=== PATIENT | male | born 1965 | race Caucasian/White ===

== ENCOUNTER → 2016-06-23 | Outpatient (CLI) | payer BC | END | disposition home or self-care (01) | LOC: RADMRIMAIN 19:59 | PROVIDERS: ATTEND Family Medicine | DX: Z53.9 Procedure and treatment not carried out, unspecified reason (principal) ==

== ENCOUNTER 2019-10-06 19:27 | Emergency (ER) | payer BC ==
--- NOTE | 2019-10-06 20:13 | ED ---
SOB HPI - General Chief Complaint: Shortness of Breath Stated Complaint: Syncope,Fall Time Seen by Provider: 10/06/19 19:43 Source: patient, family Mode of arrival: ambulatory Limitations: no limitations - History of Present Illness Initial Comments: 54-year-old male patient presents to the emergency department today for evaluation of chest pressure and shortness of breath. Patient has been having an intermittent cough for the last couple of months. Cough is nonproductive. He does work in construction and inhales dust so he thinks it may be related to ALLERGIES. 2 days ago patient was laughing really hard and started to cough. Had a syncopal episode where he was out for 1-2 seconds. Afterwards his checked his vital signs which were reportedly normal. Since the incident patient has been feeling mildly short of breath especially with activity and bending forward. Patient took a walk this afternoon with his afterwards that she checked his oxygen saturation was down to 89%. States that he had increased chest pressure and shortness of breath after the walk. Patient does have history of hypertension and does take blood pressure medication. He has no cardiac history. Denies smoking. Patient denies any recent rash, fever, chills, cough, abdominal pain, nausea, vomiting, diarrhea, constipation, back pain, numbness, tingling, dizziness, weakness, hematuria, dysuria, urinary urgency, urinary frequency, headache, visual changes, or any other complaints. - Related Data Allergies Allergy/AdvReac Type Severity Reaction Status Date / Time Penicillins Allergy Rash/Hives Verified 10/06/19 19:41 Review of Systems ROS Statement: Those systems with pertinent positive or pertinent negative responses have been documented in the HPI. ROS Other: All systems not noted in ROS Statement are negative. Past Medical History Past Medical History: Eye Disorder, Hypertension, Thyroid Disorder Additional Past Medical History / Comment(s): glaucoma, low testosterone, hypothyroid History of Any Multi-Drug Resistant Organisms: None Reported Past Surgical History: Orthopedic Surgery Past Psychological History: Anxiety Smoking Status: Never smoker Past Alcohol Use History: Occasional Past Drug Use History: None Reported General Exam Limitations: no limitations General appearance: alert, in no apparent distress, other (This is a well-de veloped, well-nourished adult male patient in no acute distress. Vital signs upon presentation are temperature 98.3F, pulse 73, respirations 20, blood pressure 145/85, pulse ox 96% on room air.) Eye exam: Present: normal appearance, PERRL, EOMI. Absent: scleral icterus, c onjunctival injection, periorbital swelling ENT exam: Present: normal exam, normal oropharynx, mucous membranes moist Respiratory exam: Present: normal lung sounds bilaterally. Absent: respiratory distress, wheezes, rales, rhonchi, stridor Cardiovascular Exam: Present: regular rate, normal rhythm, normal heart sounds. Absent: systolic murmur, diastolic murmur, rubs, gallop, clicks GI/Abdominal exam: Present: soft, normal bowel sounds. Absent: distended, tenderness, guarding, rebound, rigid Neurological exam: Present: alert, oriented X3, CN II-XII intact Psychiatric exam: Present: normal affect, normal mood Skin exam: Present: warm, dry, intact, normal color. Absent: rash Course Vital Signs 10/06/19 10/06/19 19:34 22:08 Temperature 98.3 F 98.1 F Pulse Rate 73 67 Respiratory 20 19 Rate Blood Pressure 145/85 141/72 O2 Sat by Pulse 96 96 Oximetry Medical Decision Making - Medical Decision Making 54-year-old male patient presents to the emergency department today for evaluation of shortness of breath, chest tightness, and reporting a syncopal episode last evening. Physical examination was unremarkable. Lungs are clear to auscultation with good air movement. Patient was in no respiratory distress. Labs reviewed and were unremarkable. EKG showed normal sinus rhythm. Chest x- ray showed no acute cardiopulmonary process. Upon reevaluation patient is resting comfortably in bed. Did discuss findings and results with him. He does feel comfortable being discharged home at this time to follow-up with his primary care physician for further evaluation. He is instructed to follow-up in one to 2 days. Return parameters were discussed in detail. He verbalizes understanding and agrees with this plan. - Lab Data Result diagrams: 10/06/19 20:26 10/06/19 20: Lab Results 10/06/19 10/06/19 10/06/19 Range/Units 20:26 20:26 20: WBC 8.9 (3.8-10.6) k/uL RBC 5.25 (4.30-5.90) m/uL Hgb 17.4 (13.0-17.5) gm/dL Hct 50.3 (39.0-53.0) % MCV 95.8 (80.0-100.0) fL MCH 33.0 (25.0-35.0) pg MCHC 34.5 (31.0-37.0) g/dL RDW 13.3 (11.5-15.5) % Plt Count 209 (150-450) k/uL Neutrophils % 64 % Lymphocytes % 24 % Monocytes % 8 % Eosinophils % 2 % Basophils % 0 % Neutrophils # 5.7 (1.3-7.7) k/uL Lymphocytes # 2.2 (1.0-4.8) k/uL Monocytes # 0.7 (0-1.0) k/uL Eosinophils # 0.2 (0-0.7) k/uL Basophils # 0.0 (0-0.2) k/uL PT 9.6 (9.0-12.0) sec INR 0.9 (<1.2) APTT 22.1 (22.0-30.0) sec D-Dimer 0.39 (<0.60) mg/L FEU Sodium 136 L (137-145) mmol/L Potassium 3.4 L (3.5-5.1) mmol/L Chloride 102 (98-107) mmol/L Carbon Dioxide 26 (22-30) mmol/L Anion Gap 8 mmol/L BUN 16 (9-20) mg/dL Creatinine 0.92 (0.66-1.25) mg/dL Est GFR (CKD-EPI)AfAm >90 (>60 ml/min/1.73 sqM) Est GFR (CKD-EPI)NonAf >90 (>60 ml/min/1.73 sqM) Glucose 112 H (74-99) mg/dL Plasma Lactic Acid Dio (0.7-2.0) mmol/L Calcium 9.2 (8.4-10.2) mg/dL Magnesium 2.0 (1.6-2.3) mg/dL Total Bilirubin 0.7 (0.2-1.3) mg/dL AST 40 (17-59) U/L ALT 52 H (4-49) U/L Alkaline Phosphatase 68 (38-126) U/L Troponin I (0.000-0.034) ng/mL NT-Pro-B Natriuret Pep pg/mL Total Protein 6.7 (6.3-8.2) g/dL Albumin 4.3 (3.5-5.0) g/dL 10/06/19 10/06/19 10/06/19 Range/Units 20:26 20:26 20:26 WBC (3.8-10.6) k/uL RBC (4.30-5.90) m/uL Hgb (13.0-17.5) gm/dL Hct (39.0-53.0) % MCV (80.0-100.0) fL MCH (25.0-35.0) pg MCHC (31.0-37.0) g/dL RDW (11.5-15.5) % Plt Count (150-450) k/uL Neutrophils % % Lymphocytes % % Monocytes % % Eosinophils % % Basophils % % Neutrophils # (1.3-7.7) k/uL Lymphocytes # (1.0-4.8) k/uL Monocytes # (0-1.0) k/uL Eosinophils # (0-0.7) k/uL Basophils # (0-0.2) k/uL PT (9.0-12.0) sec INR (<1.2) APTT (22.0-30.0) sec D-Dimer (<0.60) mg/L FEU Sodium (137-145) mmol/L Potassium (3.5-5.1) mmol/L Chloride (98-107) mmol/L Carbon Dioxide (22-30) mmol/L Anion Gap mmol/L BUN (9-20) mg/dL Creatinine (0.66-1.25) mg/dL Est GFR (CKD-EPI)AfAm (>60 ml/min/1.73 sqM) Est GFR (CKD-EPI)NonAf (>60 ml/min/1.73 sqM) Glucose (74-99) mg/dL Plasma Lactic Acid Dio 1.2 (0.7-2.0) mmol/L Calcium (8.4-10.2) mg/dL Magnesium (1.6-2.3) mg/dL Total Bilirubin (0.2-1.3) mg/dL AST (17-59) U/L ALT (4-49) U/L Alkaline Phosphatase (38-126) U/L Troponin I <0.012 (0.000-0.034) ng/mL NT-Pro-B Natriuret Pep 53 pg/mL Total Protein (6.3-8.2) g/dL Albumin (3.5-5.0) g/dL - EKG Data -: EKG Interpreted by Me EKG Comments: EKG obtained in 1950 shows normal sinus rhythm with a ventricular rate of 70, LA interval 186, QRS duration 122, QT 448, QTC 483. No evidence of ST elevation or depression - Radiology Data Radiology results: report reviewed, image reviewed Two-view x-ray of the chest is obtained. Report was reviewed in its entirety. Impression by Dr. Bustamante shows normal chest. Disposition Clinical Impression: Syncope, Shortness of breath, Chest pain Disposition: HOME SELF-CARE Condition: Good Instructions (If sedation given, give patient instructions): Chest Pain (ED), Syncope (ED), Shortness of Breath (ED) Additional Instructions: Follow-up with your primary care physician for recheck in 1-2 days. Return to the emergency department immediately for any new, worsening, or concerning symptoms. Is patient prescribed a controlled substance at d/c from ED?: No Referrals: Adriana Qiu MD [Primary Care Provider] - 1-2 days Time of Disposition: 21:44
--- NOTE | 2019-10-06 20:37 | XR ---
EXAMINATION TYPE: XR chest 2V DATE OF EXAM: 10/06/2019 COMPARISON: NONE HISTORY: Cough TECHNIQUE: 2 views FINDINGS: Heart and mediastinum are normal. Lungs are clear. Diaphragm is normal. Bony thorax appears normal. There are chest leads. IMPRESSION: Normal chest.
[2019-10-06 20:46] LABS: Basophils % (A) 0 %; Eosinophils # (A) 0.2 k/uL (0-0.7); Eosinophils % (A) 2 %; HCT 50.3 % (39.0-53.0); HGB 17.4 gm/dL (13.0-17.5); Lymphocytes # (A) 2.2 k/uL (1.0-4.8); Lymphocytes % (A) 24 %; MCHC 34.5 g/dL (31.0-37.0); MCV 95.8 fL (80.0-100.0); Mean Platelet Volume 7.5; Monocytes # (A) 0.7 k/uL (0-1.0); Monocytes % (A) 8 %; Neutrophils # (A) 5.7 k/uL (1.3-7.7); Neutrophils % (A) 64 %; Platelet Count 209 k/uL (150-450); RBC 5.25 m/uL (4.30-5.90); RDW 13.3 % (11.5-15.5); WBC 8.9 k/uL (3.8-10.6)
[2019-10-06 20:53] LABS: ALT 52 U/L (4-49); AST 40 U/L (17-59); African American GFR (CKD) >90 (>60 ml/min/1.73 sqM); Albumin 4.3 g/dL (3.5-5.0); Alkaline Phosphatase 68 U/L (38-126); Anion Gap 8 mmol/L; Blood Urea Nitrogen 16 mg/dL (9-20); Calcium 9.2 mg/dL (8.4-10.2); Carbon Dioxide 26 mmol/L (22-30); Chloride 102 mmol/L (98-107); Glucose 112 mg/dL (74-99); Non-African American GFR(CKD) >90 (>60 ml/min/1.73 sqM); Potassium 3.4 mmol/L (3.5-5.1); Sodium 136 mmol/L (137-145); Total Bilirubin 0.7 mg/dL (0.2-1.3); Total Protein 6.7 g/dL (6.3-8.2)
[2019-10-06] MEDS ORDERED: POTASSIUM CHLORIDE ER 20 MEQ TAB.ER PO STA (21:12)
[2019-10-06 21:13] LABS: D-Dimer 0.39 mg/L FEU (<0.60); INR 0.9 (<1.2); Partial Thromboplastin Time 22.1 sec (22.0-30.0); Prothrombin Time 9.6 sec (9.0-12.0)
[2019-10-06 22:10] VITALS: BP 141/72; PULSE 67; RESP 19; TEMP 98.1
== END 2019-10-06 22:10 | disposition home or self-care (01) ==
LOC: EC 19:27
DX: R06.02 Shortness of breath (principal); R07.89 Other chest pain; R55 Syncope and collapse; Z20.828 Contact with and (suspected) exposure to other viral communicable diseases; Z88.0 Allergy status to penicillin
CPT/HCPCS: 36415; 93005; 85379; 83880; 80053; 83605; 83735; 84484; 85025; 85610; 85730; 71046; 99285; U0003

== ENCOUNTER 2022-02-11 06:52 | Day surgery (SDC) | payer BC ==
[2022-02-09 12:24] VITALS: BMI 37.2
[~2022-02-11 06:52] MED LIST: LACTATED RINGERS 1,000 ML IV SCH
[2022-02-11 07:31] VITALS: RESP 16; TEMP 98
[2022-02-11] MEDS ORDERED: PROPOFOL 10 MG/ML 20 ML VIAL IV ONE (08:21)
--- NOTE | 2022-02-11 08:35 | P.PCN ---
Date of Procedure: 02/11/22 Procedure(s) Performed: BRIEF HISTORY: Patient is a 56-year-old pleasant white male scheduled for an elective colonoscopy as a part of screening for colon cancer. PROCEDURE PERFORMED: Colonoscopy. PREOPERATIVE DIAGNOSIS: Screening for colon cancer. IV sedation per Anesthesia. PROCEDURE: After informed consent was obtained, the patient, was brought into the endoscopy unit. IV sedation was administered by Anesthesia under continuous monitoring. Digital rectal examination was normal. Initially the Olympus CF-160 flexible video colonoscope was then inserted in the rectum, gradually advanced into the cecum without any difficulty. Careful examination was performed as the scope was gradually being withdrawn. Ileocecal valve and the appendiceal orifice were visualized and appeared normal. Prep was excellent. Mucosa of the cecum, ascending colon, transverse colon, descending colon, sigmoid colon, and rectum appeared normal. Retroflexion was performed in the rectum and no lesions were seen. The patient tolerated the procedure well. IMPRESSION: Normal-appearing colon from rectum to cecum with no evidence of colorectal neoplasia. RECOMMENDATIONS: Findings of this examination were discussed with the patient as well as his family.. He was advised to have a repeat screening colonoscopy in 10 years.
[2022-02-11] MEDS ORDERED: IV FLUID CONTINUATION 1,000 ML IV ONE (08:39)
[2022-02-11 09:00] VITALS: BP 117/71; PULSE 79
== END 2022-02-11 09:46 | disposition home or self-care (01) ==
LOC: ORWHC2ENDO 06:52
PROVIDERS: ATTEND Internal Medicine Gastroenterology
DX: Z12.11 Encounter for screening for malignant neoplasm of colon (principal); Z88.0 Allergy status to penicillin
CPT/HCPCS: 45378; J2704

== ENCOUNTER 2022-03-29 17:09 | Emergency (ER) | payer BC ==
[2022-03-29 17:20] VITALS: RESP 18; TEMP 98.3
--- NOTE | 2022-03-29 18:57 | ED ---
General Adult HPI - General Chief complaint: Syncope Stated complaint: Nausea,Vomiting,Syncope Time Seen by Provider: 03/29/22 17:19 Source: patient, EMS, RN notes reviewed, old records reviewed Mode of arrival: EMS Limitations: no limitations - History of Present Illness Initial comments: This is a 57-year-old male who presents emergency department stating that at about 1:00 he started getting extremely dizzy like the room was spinning. Patient states he felt like he was given a fall over. Patient states BECAME very nauseated and diaphoretic. Patient denies any chest pain or palpitations. Patient states he did not feel like he was given a passout he felt very dizzy and felt as though he might fall over feeding grab onto something. Patient states he's had little episodes of vertigo in his past but nothing that lasted this long. Patient states he still feels somewhat dizzy. Patient states he kind of focus is on one item it subsides to some degree. Patient denies any headache. Patient denies any numbness or weakness that is focal. Patient denies any fever or chills. Patient states he has had a cough and some congestion. Patient denies any abdominal pain patient has nausea vomiting diarrhea. Patient denies any swelling to legs or calf tenderness. - Related Data Home Medications Medication Instructions Recorded Confirmed Atenolol/Chlorthalidone 1 tab PO DAILY 02/09/22 03/29/22 [Atenolol/Chlorthalidone 50-25] Ibuprofen [Motrin] 600 mg PO Q8HR PRN 02/09/22 03/29/22 Levothyroxine Sodium [Synthroid] 50 mcg PO DAILY 02/09/22 03/29/22 Testosterone [Androgel 1.62% Gel 2 packet TOPICAL HS 02/09/22 03/29/22 Packet] clonazePAM [KlonoPIN] 0.5 mg PO DAILY PRN 02/09/22 03/29/22 metFORMIN HCL [Glucophage] 850 mg PO HS 02/09/22 03/29/22 Azithromycin [Zithromax Z Pack] See Taper PO DIRECTED 03/29/22 03/29/22 Benzonatate [Tessalon Perle] 200 mg PO TID PRN 03/29/22 03/29/22 Diclofenac Sodium Gel [Voltaren 2 gm TOPICAL QID PRN 03/29/22 03/29/22 Gel] Ketorolac 0.5% Ophth Soln [Acular 1 drop RIGHT EYE QID 03/29/22 03/29/22 0.5%] Ofloxacin 0.3% Ophth Soln [Ocuflox 1 drop RIGHT EYE QID 03/29/22 03/29/22 Ophth Soln] Prednisolone Acetate/Pf 1 drop BOTH EYES 5XD 03/29/22 03/29/22 [Prednisolone Acet 1% Eye Drop] Previous Rx's Medication Instructions Recorded Meclizine [Antivert] 25 mg PO TID #20 tab 03/29/22 Metoclopramide HCl [Reglan] 10 mg PO Q6H PRN #10 tab 03/29/22 Allergies Allergy/AdvReac Type Severity Reaction Status Date / Time Penicillins Allergy Rash/Hives Verified 03/29/22 18:14 Review of Systems ROS Statement: Those systems with pertinent positive or pertinent negative responses have been documented in the HPI. ROS Other: All systems not noted in ROS Statement are negative. Past Medical History Past Medical History: Eye Disorder, Hypertension, Sleep Apnea/CPAP/BIPAP, Thyroid Disorder Additional Past Medical History / Comment(s): glaucoma, low testosterone, hypothyroid, C PAP MACHINE History of Any Multi-Drug Resistant Organisms: None Reported Past Surgical History: Orthopedic Surgery Additional Past Surgical History / Comment(s): RIGHT KNEE SURGERY,RIGHT ACHILLES TENDON REPAIR SURGERY, LEFT SHOULDER SURGERY Past Anesthesia/Blood Transfusion Reactions: No Reported Reaction Past Psychological History: Anxiety Smoking Status: Never smoker Past Alcohol Use History: Occasional Past Drug Use History: None Reported - Past Family History Mother Family Medical History: No Reported History General Exam - General Exam Comments Initial Comments: GENERAL: Patient is well-developed and well-nourished. Patient is nontoxic and well- hydrated and is in mild distress. ENT: Neck is soft and supple. No significant lymphadenopathy is noted. Oropharynx is clear. Moist mucous membranes. Neck has full range of motion without eliciting any pain. EYES: The sclera were anicteric and conjunctiva were pink and moist. Extraocular movements were intact and pupils were equal round and reactive to light. Patient has horizontal nystagmus the left. PULMONARY: Unlabored respirations. Good breath sounds bilaterally. No audible rales rhonchi or wheezing was noted. CARDIOVASCULAR: There is a regular rate and rhythm without any murmurs gallops or rubs. ABDOMEN: Soft and nontender with normal bowel sounds. SKIN: Skin is clear with no lesions or rashes and otherwise unremarkable. NEUROLOGIC: Patient is alert and oriented x3. Cranial nerves II through XII are grossly intact. Motor and sensory are also intact. Normal speech, volume and content. Symmetrical smile. Cerebellar testing finger to nose bilaterally was normal MUSCULOSKELETAL: Normal extremities with adequate strength and full range of motion. No lower extremity swelling or edema. No calf tenderness. LYMPHATICS: No significant lymphadenopathy is noted PSYCHIATRIC: Normal psychiatric evaluation. Limitations: no limitations Course Vital Signs 03/29/22 03/29/22 03/29/22 17:10 18:07 18:30 Temperature 98.3 F Pulse Rate 71 70 Pulse Rate [ 72 Left Left Lateral Pulse Oximetery] Pulse Rate [ 68 Left Sitting Pulse Oximetery ] Pulse Rate [ 70 Left Supine Pulse Oximetery ] Respiratory 18 16 Rate Blood Pressure 140/84 133/75 Blood Pressure 146/88 [Left Arm Sitting] Blood Pressure 155/89 [Left Arm Standing] Blood Pressure 137/79 [Left Arm Supine] O2 Sat by Pulse 97 99 Oximetry 03/29/22 19:41 Temperature Pulse Rate 69 Pulse Rate [ Left Left Lateral Pulse Oximetery] Pulse Rate [ Left Sitting Pulse Oximetery ] Pulse Rate [ Left Supine Pulse Oximetery ] Respiratory 18 Rate Blood Pressure 122/71 Blood Pressure [Left Arm Sitting] Blood Pressure [Left Arm Standing] Blood Pressure [Left Arm Supine] O2 Sat by Pulse 98 Oximetry Medical Decision Making - Medical Decision Making EKG was interpreted by myself. EKG shows sinus rhythm at 70 bpm TN interval 119 is 140 QT interval 4 73 mL 494. Patient's EKG shows no ST segment elevation or depression. Was pt. sent in by a medical professional or institution? @ -No Did you speak to anyone other than the patient for history? @ -Family and EMS Did you review nursing and triage notes? @ -I did review the nurse's notes and the nurse's notes stated that the patient was near syncopal patient disagrees when I ask him that. Patient states he felt like he was given a fall over but did not pass out Were old charts reviewed? @ -No Differential Diagnosis? @ -Differential Dizziness: Benign paroxysmal positional Vertigo, Menieres disease, otitis media, acoustic neuroma, vertebrobasilar insufficiency, cerebellar stroke, encephalitis, hypovolemic, arrhythmia, coronary artery syndrome, anemia, this is not meant to be an all-inclusive list EKG interpreted by me (3pts min.)? @ -As above X-rays interpreted by me (1pt min.)? @ -Yes and it showed no acute abnormality CT interpreted by me (1pt min.)? @ -Yes and no acute abnormality was noted U/S interpreted by me (1pt. min.)? @ -No What testing was considered but not performed? (CT, X-rays, U/S, labs)? Why? @ -No What meds were considered but not given? Why? @ -I considered a scopolamine patch by decided to use Antivert Did you discuss the management of the patient with other professionals? @ -No Did you reconcile home meds? @ -No Was smoking cessation discussed for >3mins.? @ -No Was critical care preformed (if so, how long)? @ -No Were there social determinants of health that impacted care today? How? (Homelessness, low income, unemployed, alcoholism, drug addiction, transportation, low edu. Level, literacy, decrease access to med. care, longterm, rehab)? @ -No Was there de-escalation of care discussed even if they declined? (Discuss DNR or withdrawal of care, Hospice)? @ -No What co-morbidities impacted this encounter? (DM, HTN, Smoking, COPD, CAD, Cancer, CVA, Hep., AIDS, mental health diagnosis, sleep apnea, morbid obesity)? @ -No Was patient admitted / discharged? @ -Discharged home. Patient has vertigo so the patient home with Antivert. Patient is to follow-up with ENT if symptoms worsen. Undiagnosed new problem with uncertain prognosis? @ -No Drug Therapy requiring intensive monitoring for toxicity (Heparin, Nitro, Insulin, Cardizem)? @ -No Were any procedures done? @ -No Diagnosis/symptom? @ -Vertigo Acute, or Chronic, or Acute on Chronic? @ -Acute Uncomplicated (without systemic symptoms) or Complicated (systemic symptoms)? @ -Uncomplicated Side effects of treatment? @ -No Exacerbation, Progression, or Severe Exacerbation] @ -No Poses a threat to life or bodily function? @ -No - Lab Data Result diagrams: 03/29/22 19:15 03/29/22 19:15 Lab Results 03/29/22 03/29/22 03/29/22 Range/Units 19:15 19:15 19:15 WBC 12.0 H (3.8-10.6) k/uL RBC 5.33 (4.30-5.90) m/uL Hgb 17.2 (13.0-17.5) gm/dL Hct 49.5 (39.0-53.0) % MCV 92.9 (80.0-100.0) fL MCH 32.2 (25.0-35.0) pg MCHC 34.7 (31.0-37.0) g/dL RDW 13.8 (11.5-15.5) % Plt Count 163 (150-450) k/uL MPV 8.1 Neutrophils % 82 % Lymphocytes % 8 % Monocytes % 7 % Eosinophils % 1 % Basophils % 0 % Neutrophils # 9.8 H (1.3-7.7) k/uL Lymphocytes # 0.9 L (1.0-4.8) k/uL Monocytes # 0.8 (0-1.0) k/uL Eosinophils # 0.1 (0-0.7) k/uL Basophils # 0.0 (0-0.2) k/uL PT 10.2 (9.0-12.0) sec INR 1.0 (<1.2) APTT 21.1 L (22.0-30.0) sec Sodium 137 (137-145) mmol/L Potassium 3.4 L (3.5-5.1) mmol/L Chloride 97 L (98-107) mmol/L Carbon Dioxide 28 (22-30) mmol/L Anion Gap 12 mmol/L BUN 17 (9-20) mg/dL Creatinine 0.82 (0.66-1.25) mg/dL Est GFR (CKD-EPI)AfAm >90 (>60 ml/min/1.73 sqM) Est GFR (CKD-EPI)NonAf >90 (>60 ml/min/1.73 sqM) Glucose 182 H (74-99) mg/dL Calcium 9.0 (8.4-10.2) mg/dL Magnesium 1.6 (1.6-2.3) mg/dL Total Bilirubin 0.6 (0.2-1.3) mg/dL AST 59 (17-59) U/L ALT 68 H (4-49) U/L Alkaline Phosphatase 86 (38-126) U/L Troponin I (0.000-0.034) ng/mL Total Protein 7.1 (6.3-8.2) g/dL Albumin 4.4 (3.5-5.0) g/dL 03/29/22 Range/Units 19:15 WBC (3.8-10.6) k/uL RBC (4.30-5.90) m/uL Hgb (13.0-17.5) gm/dL Hct (39.0-53.0) % MCV (80.0-100.0) fL MCH (25.0-35.0) pg MCHC (31.0-37.0) g/dL RDW (11.5-15.5) % Plt Count (150-450) k/uL MPV Neutrophils % % Lymphocytes % % Monocytes % % Eosinophils % % Basophils % % Neutrophils # (1.3-7.7) k/uL Lymphocytes # (1.0-4.8) k/uL Monocytes # (0-1.0) k/uL Eosinophils # (0-0.7) k/uL Basophils # (0-0.2) k/uL PT (9.0-12.0) sec INR (<1.2) APTT (22.0-30.0) sec Sodium (137-145) mmol/L Potassium (3.5-5.1) mmol/L Chloride (98-107) mmol/L Carbon Dioxide (22-30) mmol/L Anion Gap mmol/L BUN (9-20) mg/dL Creatinine (0.66-1.25) mg/dL Est GFR (CKD-EPI)AfAm (>60 ml/min/1.73 sqM) Est GFR (CKD-EPI)NonAf (>60 ml/min/1.73 sqM) Glucose (74-99) mg/dL Calcium (8.4-10.2) mg/dL Magnesium (1.6-2.3) mg/dL Total Bilirubin (0.2-1.3) mg/dL AST (17-59) U/L ALT (4-49) U/L Alkaline Phosphatase (38-126) U/L Troponin I <0.012 (0.000-0.034) ng/mL Total Protein (6.3-8.2) g/dL Albumin (3.5-5.0) g/dL Disposition Clinical Impression: Vertigo Disposition: HOME SELF-CARE Condition: Good Prescriptions: Meclizine [Antivert] 25 mg PO TID #20 tab Metoclopramide HCl [Reglan] 10 mg PO Q6H PRN #10 tab PRN Reason: Nausea And Vomiting Is patient prescribed a controlled substance at d/c from ED?: No Referrals: Adriana Qiu MD [Primary Care Provider] - 1-2 days Time of Disposition: 20:50
[2022-03-29] MEDS ORDERED: MECLIZINE 12.5 MG TAB PO STA (19:17)
[2022-03-29] MEDS ORDERED: ONDANSETRON 4 MG/2 ML VIAL IVP STA (19:17)
--- NOTE | 2022-03-29 19:23 | XR ---
EXAMINATION TYPE: XR chest 2V DATE OF EXAM: 03/29/2022 7:14 PM COMPARISON: Chest radiographs from; 08/21/2019 TECHNIQUE: XR chest 2V Frontal and lateral views of the chest. CLINICAL INDICATION:Male, 57 years old with history of Chest Pain; FINDINGS: Lungs/Pleura: There is no evidence of pleural effusion, focal consolidation, or pneumothorax. Pulmonary vascularity: Unremarkable. Heart/mediastinum: Cardiomediastinal silhouette is unremarkable. Musculoskeletal: No acute osseous pathology. IMPRESSION: No acute cardiopulmonary disease/process.
[2022-03-29 19:43] LABS: ALT 68 U/L (4-49); AST 59 U/L (17-59); African American GFR (CKD) >90 (>60 ml/min/1.73 sqM); Albumin 4.4 g/dL (3.5-5.0); Alkaline Phosphatase 86 U/L (38-126); Anion Gap 12 mmol/L; Blood Urea Nitrogen 17 mg/dL (9-20); Carbon Dioxide 28 mmol/L (22-30); Chloride 97 mmol/L (98-107); Glucose 182 mg/dL (74-99); Magnesium 1.6 mg/dL (1.6-2.3); Non-African American GFR(CKD) >90 (>60 ml/min/1.73 sqM); Potassium 3.4 mmol/L (3.5-5.1); Sodium 137 mmol/L (137-145); Total Bilirubin 0.6 mg/dL (0.2-1.3); Total Protein 7.1 g/dL (6.3-8.2)
[2022-03-29 19:44] LABS: Prothrombin Time 10.2 sec (9.0-12.0)
[2022-03-29 19:46] LABS: HCT 49.5 % (39.0-53.0); HGB 17.2 gm/dL (13.0-17.5); MCH 32.2 pg (25.0-35.0); MCHC 34.7 g/dL (31.0-37.0); MCV 92.9 fL (80.0-100.0); RBC 5.33 m/uL (4.30-5.90)
[2022-03-29 19:47] LABS: Basophils % (A) 0 %; Eosinophils # (A) 0.1 k/uL (0-0.7); Eosinophils % (A) 1 %; Lymphocytes # (A) 0.9 k/uL (1.0-4.8); Lymphocytes % (A) 8 %; Mean Platelet Volume 8.1; Monocytes # (A) 0.8 k/uL (0-1.0); Monocytes % (A) 7 %; Neutrophils # (A) 9.8 k/uL (1.3-7.7); Neutrophils % (A) 82 %; Platelet Count 163 k/uL (150-450); RDW 13.8 % (11.5-15.5)
[2022-03-29 19:57] LABS: Partial Thromboplastin Time 21.1 sec (22.0-30.0)
--- NOTE | 2022-03-29 20:06 | CT ---
EXAMINATION TYPE: CT brain wo con CT DLP: 1173.4 mGycm, Automated exposure control for dose reduction was used. DATE OF EXAM: 03/29/2022 7:10 PM COMPARISON: None. CLINICAL INDICATION:Male, 57 years old with history of near syncope, dizziness and nausea/ vomiting. TECHNIQUE: Brain: Axial CT images of the brain were obtained with coronal and sagittal reformats created and rev iewed. Contrast used: None. Oral contrast used: None. FINDINGS: Brain: Extra-axial spaces: No abnormal extra-axial fluid collections. Ventricular system: Within normal limits Cerebral parenchyma: No acute intraparenchymal hemorrhage or mass effect. The simon-white junction is well differentiated. Cerebellum: Unremarkable. Mass effect: No evidence of midline shift. Intracranial vasculature: unremarkable Soft tissues: Normal. Calvarium/osseous structures: No depressed skull fracture. Paranasal sinuses and mastoid air cells: Mild scattered paranasal sinus disease. Visualized orbits: Orbital contents are intact. IMPRESSION: No acute intracranial process.
[2022-03-29] MEDS ORDERED: METOCLOPRAMIDE 10 MG TAB PO STA (21:16)
[2022-03-29] MEDS ORDERED: MECLIZINE 25 MG TAB PO STA (21:16)
[2022-03-29 21:29] VITALS: BP 132/80; PULSE 72
== END 2022-03-29 21:29 | disposition home or self-care (01) ==
LOC: EC 17:09
DX: R42 Dizziness and giddiness (principal); I10 Essential (primary) hypertension; G47.30 Sleep apnea, unspecified; E03.9 Hypothyroidism, unspecified; F41.9 Anxiety disorder, unspecified; Z79.890 Hormone replacement therapy; Z79.899 Other long term (current) drug therapy; Z88.0 Allergy status to penicillin
CPT/HCPCS: 36415; 93005; 80053; 83735; 84484; 85025; 85610; 85730; 71046; 70450; 99285; 96374; J2405

== ENCOUNTER → 2022-06-27 | Outpatient (CLI) | payer BC ==
--- NOTE | 2022-06-27 11:20 | XR ---
EXAMINATION TYPE: XR knee complete RT DATE OF EXAM: 06/27/2022 CLINICAL HISTORY: Pain. Twisting injury 1 year ago. TECHNIQUE: Three views of the right knee are obtained. COMPARISON: None. FINDINGS: There is no acute fracture/dislocation evident in right knee. Moderate narrowing and spurr ing medial tibiofemoral compartment. Moderate narrowing with [id number] spurring patellofemoral and lateral tibiofemoral compartments. Overlying soft tissues are unremarkable. IMPRESSION: As above.
== END | disposition home or self-care (01) ==
LOC: RADXRMAIN 11:06
PROVIDERS: ATTEND Family Medicine
DX: M25.861 Other specified joint disorders, right knee (principal); M76.891 Other specified enthesopathies of right lower limb, excluding foot

== ENCOUNTER 2023-03-13 18:39 | Observation (INO) | payer BC ==
--- NOTE | 2023-03-13 19:26 | ED ---
Chest Pain HPI - General Chief Complaint: Chest Pain Stated Complaint: Chest pains Time Seen by Provider: 03/13/23 19:26 Source: patient Mode of arrival: ambulatory Limitations: no limitations - History of Present Illness Initial Comments: 58-year-old male with history of diabetes and hypertension presenting with chief complaint of chest pain. Patient has had intermittent pain to the left side of the chest. Feels like a burning sensation. He does have some radiation into the left shoulder. No shortness of breath or palpitations. No nausea, vomiting, abdominal pain. No lower extremity swelling. No fevers or chills. No numbness, tingling, weakness. - Related Data Home Medications Medication Instructions Recorded Confirmed Atenolol/Chlorthalidone 1 tab PO DAILY 02/09/22 03/13/23 [Atenolol/Chlorthalidone 50-25] Ibuprofen [Motrin] 600 mg PO TID PRN 02/09/22 03/13/23 Levothyroxine Sodium [Synthroid] 50 mcg PO DAILY 02/09/22 03/13/23 Testosterone [Androgel 1.62% Gel 2 packet TOPICAL DAILY 02/09/22 03/13/23 Packet] clonazePAM [KlonoPIN] 0.25 mg PO HS 02/09/22 03/13/23 Prednisolone Acetate/Pf 1 drop BOTH EYES HS 03/29/22 03/13/23 [Prednisolone Acet 1% Eye Drop] Semaglutide [Ozempic] 1 mg SQ SA 03/13/23 03/13/23 Allergies Allergy/AdvReac Type Severity Reaction Status Date / Time Penicillins Allergy Rash/Hives Verified 03/13/23 20:59 on belly Review of Systems ROS Statement: Those systems with pertinent positive or pertinent negative responses have been documented in the HPI. ROS Other: All systems not noted in ROS Statement are negative. EKG Findings - EKG Comments: EKG Findings:: Sinus rhythm ventricular rate 89. WV interval 196. QRS 141. QT 400. QTC 447. Past Medical History Past Medical History: Diabetes Mellitus, Eye Disorder, Hypertension, Sleep Apnea/CPAP/BIPAP, Thyroid Disorder Additional Past Medical History / Comment(s): glaucoma, low testosterone, hypothyroid, C PAP MACHINE History of Any Multi-Drug Resistant Organisms: None Reported Past Surgical History: Orthopedic Surgery Additional Past Surgical History / Comment(s): RIGHT KNEE SURGERY,RIGHT ACHILLES TENDON REPAIR SURGERY, LEFT SHOULDER SURGERY Past Anesthesia/Blood Transfusion Reactions: No Reported Reaction Past Psychological History: Anxiety Smoking Status: Never smoker Past Alcohol Use History: Occasional Past Drug Use History: None Reported - Past Family History Mother Family Medical History: No Reported History General Exam - General Exam Comments Initial Comments: Visual Physical Exam Vital signs reviewed General: Well-appearing, nontoxic, no acute distress. Head: Normocephalic, atraumatic Eyes: PERRLA, EOMI ENT: Airway patent Chest: Nonlabored breathing Skin: No visual rash, normal skin tone Neuro: Alert and oriented 3 Musculoskeletal: No gross abnormalities Limitations: no limitations General appearance: alert, in no apparent distress Head exam: Present: atraumatic, normocephalic, normal inspection Eye exam: Present: normal appearance, EOMI Neck exam: Present: normal inspection, full ROM Respiratory exam: Present: normal lung sounds bilaterally. Absent: respiratory distress, wheezes, rales, rhonchi, stridor Cardiovascular Exam: Present: regular rate, normal rhythm, normal heart sounds. Absent: systolic murmur, diastolic murmur, rubs, gallop, clicks Extremities exam: Absent: pedal edema Neurological exam: Present: alert, oriented X3 Psychiatric exam: Present: normal affect, normal mood Skin exam: Present: warm, dry, intact, normal color. Absent: rash Course Vital Signs 03/13/23 03/13/23 03/13/23 18:54 20:03 21:47 Temperature 97.9 F Pulse Rate 89 92 73 Respiratory 20 16 16 Rate Blood Pressure 161/81 147/83 110/71 O2 Sat by Pulse 98 98 95 Oximetry Chest Pain MDM - MDM Was pt. sent in by a medical professional or institution (, PA, HELP DESK ASSOCIATE, urgent care, hospital, or fci...) When possible be specific @ -No Did you speak to anyone other than the patient for history (EMS, parent, family, police, friend...)? What history was obtained from this source @ -No Did you review nursing and triage notes (agree or disagree)? Why? @ -I reviewed and agree with nursing and triage notes Were old charts reviewed (outside hosp., previous admission, EMS record, old EKG, old radiological studies, urgent care reports/EKG's, fci records)? Report findings @ -No old charts were reviewed Differential Diagnosis (chest pain, altered mental status, abdominal pain women, abdominal pain men, vaginal bleeding, weakness, fever, dyspnea, syncope, headache, dizziness, GI bleed, back pain, seizure, CVA, palpatations, mental health, musculoskeletal)? @ -[facility] Differential Chest Pain: Stable Angina, Unstable Angina, STEMI, NSTEMI Aortic Dissection, Pneumothorax, Musculoskeletal, Esophageal Spasm GERD, Cholecystitis, Pancreatitis, Zoster This is not meant to be an all-inclusive list. EKG interpreted by me (3pts min.). @ -As above X-rays interpreted by me (1pt min.). @ -Chest x-ray shows no acute cardiopulmonary process CT interpreted by me (1pt min.). @ -None done U/S interpreted by me (1pt. min.). @ -None done What testing was considered but not performed or refused? (CT, X-rays, U/S, labs)? Why? @ -None What meds were considered but not given or refused? Why? @ -None Did you discuss the management of the patient with other professionals (professionals i.e. , PA, HELP DESK ASSOCIATE, lab, RT, psych nurse, social media specialist, art instructor, teacher, inspectors and regulatory officers, parts manager)? Give summary @ -I spoke with Dr. Klein who accepted admission Was smoking cessation discussed for >3mins.? @ -No Was critical care preformed (if so, how long)? @ -No Were there social determinants of health that impacted care today? How? (Homelessness, low income, unemployed, alcoholism, drug addiction, transportation, low edu. Level, literacy, decrease access to med. care, nursing home, rehab)? @ -No Was there de-escalation of care discussed even if they declined (Discuss DNR or withdrawal of care, Hospice)? DNR status @ -No What co-morbidities impacted this encounter? (DM, HTN, Smoking, COPD, CAD, Cancer, CVA, ARF, Chemo, Hep., AIDS, mental health diagnosis, sleep apnea, morbid obesity)? @ -None Was patient admitted / discharged? Hospital course, mention meds given and route, prescriptions, significant lab abnormalities, going to OR and other pertinent info. @ -58-year-old male presenting with chief complaint of chest pain. History and physical examination are conducted. Potassium 3.1. Workup shows no acute [place]. Patient will be admitted for observation with evaluation by cardiology in the morning. Patient is agreeable to this plan. I discussed this case with my attending Dr. Olivo Undiagnosed new problem with uncertain prognosis? @ -No Drug Therapy requiring intensive monitoring for toxicity (Heparin, Nitro, Insulin, Cardizem)? @ -No Were any procedures done? @ -No Diagnosis/symptom? @ -Chest Pain Acute, or Chronic, or Acute on Chronic? @ -Acute Uncomplicated (without systemic symptoms) or Complicated (systemic symptoms)? @ -Complicated Side effects of treatment? @ -No Exacerbation, Progression, or Severe Exacerbation? @ -No Poses a threat to life or bodily function? How? (Chest pain, [place], [place], pneumonia, PE, COPD, DKA, ARF, appy, cholecystitis, CVA, Diverticulitis, Homicidal, Suicidal, threat to staff... and all critical care pts) @ -Yes Disposition Clinical Impression: Chest pain Disposition: ADMITTED IP TO THIS HOSP Condition: Fair Time of Disposition: 21:18
--- NOTE | 2023-03-13 19:34 | XR ---
EXAMINATION TYPE: XR chest 2V DATE OF EXAM: 03/13/2023 7:07 PM CLINICAL INDICATION:Male, 58 years old with history of Chest Pain; [facility] COMPARISON: 2 view chest 03/29/2022 TECHNIQUE: XR chest 2V. Frontal PA and lateral views of the chest. FINDINGS: Lines/Tubes: None. Heart/mediastinum: Cardiomediastinal silhouette is well defined and stable. Heart size is normal. M ediastinum appears normal. Pulmonary vascularity: Not increased, Lungs/Pleura: There is no evidence of pleural effusion, focal consolidation, or pneumothorax. Musculoskeletal: No acute osseous abnormality demonstrated in the limits of the exam. Other findings: None. IMPRESSION: No acute cardiopulmonary abnormality. No change.
[2023-03-13 19:54] LABS: Basophils % (A) 0 %; Eosinophils # (A) 0.2 k/uL (0-0.7); Eosinophils % (A) 2 %; HGB 18.2 gm/dL (13.0-17.5); Lymphocytes # (A) 2.3 k/uL (1.0-4.8); Lymphocytes % (A) 23 %; MCH 31.4 pg (25.0-35.0); MCHC 34.3 g/dL (31.0-37.0); MCV 91.6 fL (80.0-100.0); Mean Platelet Volume 7.8; Monocytes # (A) 0.6 k/uL (0-1.0); Monocytes % (A) 6 %; Neutrophils # (A) 6.7 k/uL (1.3-7.7); Neutrophils % (A) 67 %; Platelet Count 193 k/uL (150-450); RBC 5.79 m/uL (4.30-5.90); RDW 13.5 % (11.5-15.5)
[2023-03-13] MEDS ORDERED: ASPIRIN 81 MG PO STA (19:58)
[2023-03-13 20:11] LABS: AST 43 U/L (17-59); African American GFR (CKD) >90 (>60 ml/min/1.73 sqM); Albumin 4.6 g/dL (3.5-5.0); Alkaline Phosphatase 64 U/L (38-126); Anion Gap 11 mmol/L; Blood Urea Nitrogen 17 mg/dL (9-20); Calcium 9.4 mg/dL (8.4-10.2); Carbon Dioxide 28 mmol/L (22-30); Chloride 99 mmol/L (98-107); Glucose 150 mg/dL (74-99); Magnesium 1.8 mg/dL (1.6-2.3); Non-African American GFR(CKD) 79 (>60 ml/min/1.73 sqM); Potassium 3.1 mmol/L (3.5-5.1); Sodium 138 mmol/L (137-145); Total Bilirubin 0.8 mg/dL (0.2-1.3); Total Protein 7.4 g/dL (6.3-8.2)
[2023-03-13 20:12] LABS: ALT 46 U/L (4-49)
[2023-03-13 20:40] LABS: Partial Thromboplastin Time 22.3 sec (22.0-30.0); Prothrombin Time 10.7 sec (10.0-12.5)
[2023-03-13] MEDS ORDERED: NALOXONE 0.4 MG/ML 1 ML VIAL IV PRN (21:23)
[2023-03-14] MEDS: LEVOTHYROXINE 50 MCG TAB PO SCH (09:22)
[2023-03-14] MEDS: CHLORTHALIDONE 25 MG TAB PO SCH (09:22)
[2023-03-14] MEDS: atenoloL 50 MG TAB PO SCH (09:22)
--- NOTE | 2023-03-14 11:31 | P.CRDCN ---
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 We have been asked to evaluate the patient for chest pain. He has a past medical history of glaucoma, diabetes, obstructive sleep apnea on CPAP, low testosterone on supplement. Patient states that he has had chest pain on and off for a couple weeks but yesterday he had all day. He also had some nausea but he thought this was related to Ozempic as he usually has this for the first couple days after the injection. He noticed a little bit of burning in the chest but denies history of GERD. Patient also went to the shoulder on the left. He denies any smoking history no marijuana use and no alcohol abuse. Patient is seen today in the emergency center waiting for bed on the observation unit. EKG sinus rhythm with no acute ST changes. Chest x-ray: No acute process. WBC 10, hemoglobin 18.2, platelet count 193. INR 1. Potassium 3.1 and was replaced in the emergency center. Otherwise electrolytes and renal function are normal. Blood sugar 150. Troponin negative 2. Liver function tests normal. Home cardiac medications: Atenolol/chlorthalidone 5025 one daily, Patient is on levothyroxine 50 g daily Review Of Systems: At the time of my exam: CONSTITUTIONAL: Denies fever or chills. CARDIOVASCULAR: Denies chest pain, Denies shortness of breath, no orthopnea, PND or palpitations. RESPIRATORY: Denies cough. GASTROINTESTINAL: Denies abdominal pain, diarrhea, constipation, nausea or vomiting. MUSCULOSKELETAL: Denies myalgias. NEUROLOGIC: Denies numbness, tingling or weakness. ENDOCRINE: Denies fatigue, weight change, polydipsia or polyurina. GENITOURINARY: Denies burning, hematuria or urgency with micturation. HEMATOLOGIC: Denies history of anemia or bleeding. Physical examination: Gen: This is a 58-year-old male. His resting and in no acute distress VS: reviewed HEENT: Head is atraumatic, normocephalic. Pupils equal, round. Sclerae is anicteric. NECK: Supple. No JVD. LUNGS: Clear to auscultation. No wheezes or rhonchi. No intercostal retractions. HEART: Regular rate and rhythm. No murmur. ABDOMEN: Soft No tenderness. EXTREMITIES: No pedal edema. No calf tenderness. NEUROLOGICAL: Patient is awake, alert and oriented x3. Assessment: Chest pain, acute coronary syndrome ruled out Diabetes mellitus type 2 Obstructive sleep apnea Low testosterone Glaucoma Polycythemia most likely due to testosterone or obstructive sleep apnea the patient has been consistently using his CPAP. He will discuss this with Dr. Shelton dawson on his next office visit. Plan: Resume blood pressure medication Schedule exercise stress echocardiogram tomorrow as patient received beta milagro this morning No beta milagro in the morning prior to stress test. Obtain 2-D echocardiogram and Doppler study to assess cardiac structure and function Further recommendations to follow based upon clinical course Thank you kindly for this consultation. Nurse practitioner note has been reviewed, I agree with documented findings and plan of care. Patient was seen and examined. Past Medical History Past Medical History: Diabetes Mellitus, Eye Disorder, Hypertension, Sleep Apnea/CPAP/BIPAP, Thyroid Disorder Additional Past Medical History / Comment(s): glaucoma, low testosterone, hypothyroid, C PAP MACHINE History of Any Multi-Drug Resistant Organisms: None Reported Past Surgical History: Orthopedic Surgery Additional Past Surgical History / Comment(s): RIGHT KNEE SURGERY,RIGHT ACHILLES TENDON REPAIR SURGERY, LEFT SHOULDER SURGERY Past Anesthesia/Blood Transfusion Reactions: No Reported Reaction Past Psychological History: Anxiety Smoking Status: Never smoker Past Alcohol Use History: Occasional Past Drug Use History: None Reported - Past Family History Mother Family Medical History: No Reported History Sister(s) Family Medical History: Diabetes Mellitus Brother(s) Family Medical History: Diabetes Mellitus Father Family Medical History: Cancer Additional Family Medical History / Comment(s): pancreatic Medications and Allergies Home Medications Medication Instructions Recorded Confirmed Type Atenolol/Chlorthalidone 1 tab PO DAILY 02/09/22 03/13/23 History [Atenolol/Chlorthalidone 50-25] Ibuprofen [Motrin] 600 mg PO TID PRN 02/09/22 03/13/23 History Levothyroxine Sodium [Synthroid] 50 mcg PO DAILY 02/09/22 03/13/23 History Testosterone [Androgel 1.62% Gel 2 packet TOPICAL DAILY 02/09/22 03/13/23 History Packet] clonazePAM [KlonoPIN] 0.25 mg PO HS 02/09/22 03/13/23 History Prednisolone Acetate/Pf 1 drop BOTH EYES HS 03/29/22 03/13/23 History [Prednisolone Acet 1% Eye Drop] Semaglutide [Ozempic] 1 mg SQ SA 03/13/23 03/13/23 History Latanoprostene Bunod [Vyzulta] 1 drop BOTH EYES HS 03/14/23 03/14/23 History Allergies Allergy/AdvReac Type Severity Reaction Status Date / Time Penicillins Allergy Rash/Hives Verified 03/13/23 20:59 on belly Physical Exam Vitals: Vital Signs Temp Pulse Resp BP Pulse Ox 03/14/23 09:25 75 16 145/60 98 03/14/23 07:24 73 16 114/70 98 03/14/23 06:10 81 16 114/71 97 03/14/23 04:32 98.3 F 73 16 117/58 98 03/13/23 21:47 73 16 110/71 95 03/13/23 20:03 92 16 147/83 98 03/13/23 18:54 97.9 F 89 20 161/81 98 Intake and Output 03/13/23 03/14/23 03/14/23 22:59 06:59 14:59 Other: Weight 154.221 kg 154.221 kg Results 03/13/23 19:31 03/13/23 19:31 Cardiac Enzymes 03/13/23 03/13/23 03/14/23 Range/Units 19:31 19:31 06:56 AST 43 (17-59) U/L Troponin I <0.012 <0.012 (0.000-0.034) ng/mL Coagulation 03/13/23 Range/Units 19:31 PT 10.7 (10.0-12.5) sec APTT 22.3 (22.0-30.0) sec CBC 03/13/23 Range/Units 19:31 WBC 10.0 (3.8-10.6) k/uL RBC 5.79 (4.30-5.90) m/uL Hgb 18.2 H (13.0-17.5) gm/dL Hct 53.0 (39.0-53.0) % Plt Count 193 (150-450) k/uL Comprehensive Metabolic Panel 03/13/23 Range/Units 19:31 Sodium 138 (137-145) mmol/L Potassium 3.1 L (3.5-5.1) mmol/L Chloride 99 (98-107) mmol/L Carbon Dioxide 28 (22-30) mmol/L BUN 17 (9-20) mg/dL Creatinine 1.04 (0.66-1.25) mg/dL Glucose 150 H (74-99) mg/dL Calcium 9.4 (8.4-10.2) mg/dL AST 43 (17-59) U/L ALT 46 (4-49) U/L Alkaline Phosphatase 64 (38-126) U/L Total Protein 7.4 (6.3-8.2) g/dL Albumin 4.6 (3.5-5.0) g/dL Current Medications Generic Name Dose Route Start Last Admin Trade Name Freq PRN Reason Stop Dose Admin Atenolol 50 mg 03/14/23 09:00 03/14/23 09:22 Atenolol 50 Mg Tab PO 50 mg DAILY FAYE Administration Chlorthalidone 25 mg 03/14/23 09:00 03/14/23 09:22 Chlorthalidone 25 Mg Tab PO 25 mg DAILY FAYE Administration Clonazepam 0.25 mg 03/14/23 21:00 Clonazepam 0.5 Mg Tab PO HS FAYE Levothyroxine Sodium 50 mcg 03/14/23 09:00 03/14/23 09:22 Levothyroxine 50 Mcg Tab PO 50 mcg 0630 FAYE Administration Naloxone HCl 0.2 mg 03/13/23 21:23 Naloxone 0.4 Mg/Ml 1 Ml Vial IV Q2M PRN Opioid Reversal Prednisolone Acetate 1 drops 03/14/23 21:00 Prednisolone Acetate 1% Ophth Drops 5 Ml Btl BOTH EYES HS FAYE Intake and Output 03/13/23 03/14/23 03/14/23 22:59 06:59 14:59 Other: Weight 154.221 kg 154.221 kg 03/13/23 19:31 03/13/23 19:31
--- NOTE | 2023-03-14 12:27 | P.HPIM ---
History of Present Illness H&P Date: 03/14/23 History of present illness; patient is a 58-year-old gentleman with past medical history significant for hypertension, hypothyroidism presents to ER because of chest pain. Patient stated that he has been having intermittent chest pain for the last 2 weeks. Chest pain is in the left side, feels like a burning sensation, intermittent lasting a few minutes to half an hour, radiates to the left shoulder. There is no aggravating factors associated with this chest pain, states chest pain is relieved if he is moving around. Denied any shortness of breath. Denies any sweating during these episodes. No complain of any palpitations. Patient denies any complain nausea, vomiting or abdominal pain. Because of the symptoms, patient came to the ER Initial lab work done in the ER showed WBC 10, hemoglobin 18.2, his platelet count 193, sodium 138, potassium 3.1, BUNs 17, creatinine 1.04, troponin 0.012 EKG done in the ER heart rate of 89, no ST segment elevation or T-wave inversion seen in any leads, no ST segment depression seen. Chest x-ray done in the ER showed no acute cardiopulmonary process Patient admitted to medicine service REVIEW OF SYSTEMS: CONSTITUTIONAL: No fever, no malaise, no fatigue. HEENT: No recent visual problems or hearing problems. Denied any sore throat. CARDIOVASCULAR: As mentioned in HPI PULMONARY: No shortness of breath, no cough, no hemoptysis. GASTROINTESTINAL: No diarrhea, no nausea, no vomiting, no abdominal pain. NEUROLOGICAL: No headaches, no weakness, no numbness. HEMATOLOGICAL: Denies any bleeding or petechiae. GENITOURINARY: Denies any burning micturition, frequency, or urgency. MUSCULOSKELETAL/RHEUMATOLOGICAL: Denies any joint pain, swelling, or any muscle pain. ENDOCRINE: Denies any polyuria or polydipsia. The rest of the 14-point review of systems is negative. PHYSICAL EXAMINATION: GENERAL: The patient is alert and oriented x3, not in any acute distress. Well developed, well nourished. HEENT: Pupils are round and equally reacting to light. EOMI. No scleral icterus. No conjunctival pallor. Normocephalic, atraumatic. No pharyngeal erythema. No thyromegaly. CARDIOVASCULAR: S1 and S2 present. No murmurs, rubs, or gallops. PULMONARY: Chest is clear to auscultation, no wheezing or crackles. ABDOMEN: Soft, nontender, nondistended, normoactive bowel sounds. No palpable organomegaly. MUSCULOSKELETAL: No joint swelling or deformity. EXTREMITIES: No cyanosis, clubbing, or pedal edema. NEUROLOGICAL: Gross neurological examination did not reveal any focal deficits. SKIN: No rashes. Assessment and plan Chest pain, rule out acute coronary syndrome Hypothyroidism Hypertension Monitor vital signs Monitor CBC Monitor CMP Continue telemetry monitoring Trend troponins. Ordered d-dimer Resume home meds Stress test ordered Cardiac consulted Labs and medication were reviewed.. Continue same treatment. Continue with symptomatic treatment. Resume home medication. Monitor labs and vitals. DVT and GI prophylaxis. Further recommendations as per clinical course of the patient Dictation was produced using [employer] dictation software. please excuse any grammatical, word or spelling errors. Past Medical History Past Medical History: Diabetes Mellitus, Eye Disorder, Hypertension, Sleep Apnea/CPAP/BIPAP, Thyroid Disorder Additional Past Medical History / Comment(s): glaucoma, low testosterone, hypothyroid, C PAP MACHINE History of Any Multi-Drug Resistant Organisms: None Reported Past Surgical History: Orthopedic Surgery Additional Past Surgical History / Comment(s): RIGHT KNEE SURGERY,RIGHT ACHILLES TENDON REPAIR SURGERY, LEFT SHOULDER SURGERY Past Anesthesia/Blood Transfusion Reactions: No Reported Reaction Past Psychological History: Anxiety Smoking Status: Never smoker Past Alcohol Use History: Occasional Past Drug Use History: None Reported - Past Family History Mother Family Medical History: No Reported History Sister(s) Family Medical History: Diabetes Mellitus Brother(s) Family Medical History: Diabetes Mellitus Father Family Medical History: Cancer Additional Family Medical History / Comment(s): pancreatic Medications and Allergies Home Medications Medication Instructions Recorded Confirmed Type Atenolol/Chlorthalidone 1 tab PO DAILY 02/09/22 03/13/23 History [Atenolol/Chlorthalidone 50-25] Ibuprofen [Motrin] 600 mg PO TID PRN 02/09/22 03/13/23 History Levothyroxine Sodium [Synthroid] 50 mcg PO DAILY 02/09/22 03/13/23 History Testosterone [Androgel 1.62% Gel 2 packet TOPICAL DAILY 02/09/22 03/13/23 History Packet] clonazePAM [KlonoPIN] 0.25 mg PO HS 02/09/22 03/13/23 History Prednisolone Acetate/Pf 1 drop BOTH EYES HS 03/29/22 03/13/23 History [Prednisolone Acet 1% Eye Drop] Semaglutide [Ozempic] 1 mg SQ SA 03/13/23 03/13/23 History Latanoprostene Bunod [Vyzulta] 1 drop BOTH EYES HS 03/14/23 03/14/23 History Allergies Allergy/AdvReac Type Severity Reaction Status Date / Time Penicillins Allergy Rash/Hives Verified 03/13/23 20:59 on belly Physical Exam Vitals: Vital Signs Temp Pulse Resp BP Pulse Ox 03/14/23 09:25 75 16 145/60 98 03/14/23 07:24 73 16 114/70 98 03/14/23 06:10 81 16 114/71 97 03/14/23 04:32 98.3 F 73 16 117/58 98 03/13/23 21:47 73 16 110/71 95 03/13/23 20:03 92 16 147/83 98 03/13/23 18:54 97.9 F 89 20 161/81 98 Intake and Output 03/13/23 03/14/23 03/14/23 22:59 06:59 14:59 Other: Weight 154.221 kg Results CBC & Chem 7: 03/13/23 19:31 03/13/23 19:31 Labs: Abnormal Lab Results - Last 24 Hours (Table) 03/13/23 03/13/23 Range/Units 19:31 19:31 Hgb 18.2 H (13.0-17.5) gm/dL Potassium 3.1 L (3.5-5.1) mmol/L Glucose 150 H (74-99) mg/dL
--- NOTE | 2023-03-14 12:46 | CA ---
Transthoracic Echo Report Name: Dhaval Salmeron Age: 58 Gender: M : 1965 Exam Date: 03/14/2023 09:25 Exam Location: [facility] Ht (in): 76 Wt (lb): 340 Ordering Physician: Ting Orosco Attending/Referring Phys: [id number], [employer] Att[employer] Shobha Head [facility] Procedure CPT: Indications: LVF Cardiac Hx: Technical Quality: Very technically difficult study Contrast 1: Definity Total Dose (mL): 6 Contrast 2: Total Dose (mL): MEASUREMENTS (Male / Female) Normal Values 2D ECHO LV Diastolic Diameter PLAX 5.0 cm 4.2 - 5.9 / 3.9 - 5.3 cm LV Systolic Diameter PLAX 3.2 cm IVS Diastolic Thickness 1.1 cm 0.6 - 1.0 / 0.6 - 0.9 cm LVPW Diastolic Thickness 0.9 cm 0.6 - 1.0 / 0.6 - 0.9 cm LV Relative Wall Thickness 0.4 LVOT Diameter 2.1 cm Ascending Aorta Diameter 3.3 cm DOPPLER AV Peak Velocity 107.1 cm/s AV Peak Gradient 4.6 mmHg AV Mean Velocity 73.4 cm/s AV Mean Gradient 2.4 mmHg AV Velocity Time Integral 19.3 cm LVOT Peak Velocity 91.2 cm/s LVOT Peak Gradient 3.3 mmHg LVOT Velocity Time Integral 18.4 cm LVOT Stroke Volume 63.7 cm??? LVOT Stroke Volume Index 23.0 ml/m??? LVOT Cardiac Index 1540.7 cm???/min???m??? AV Area Cont Eq vti 3.3 cm??? AV Area Cont Eq pk 2.9 cm??? Mitral E Point Velocity 64.2 cm/s Mitral A Point Velocity 69.6 cm/s Mitral E to A Ratio 0.9 MV Deceleration Time 203.2 ms LV E' Lateral Velocity 11.2 cm/s Mitral E to LV E' Lateral Ratio 5.7 LV E' Septal Velocity 10.4 cm/s Mitral E to LV E' Septal Ratio 6.2 Right Atrial Pressure 8.0 mmHg FINDINGS Left Ventricle Mildly increased left ventricular wall thickness. Left ventricular cavity size normal. Normal left ventricular systolic function with no obvious regional wall motion abnormalities. Left ventricular ejection fraction is estimated at 60- 65%. Right Ventricle Right ventricle not well visualized. Unable to estimate the right ventricular systolic pressure. Right Atrium Right atrium not well visualized. Left Atrium Left atrial size at the upper limits of normal. Mitral Valve Mitral valve not well visualized. No mitral regurgitation. Aortic Valve Trileaflet aortic valve. No aortic valve stenosis or regurgitation. Tricuspid Valve Tricuspid valve not well visualized. Pulmonic Valve Pulmonic valve not well visualized. Pericardium No pericardial effusion. Aorta Normal size aortic root and proximal ascending aorta. CONCLUSIONS Technically difficult study. Left ventricular ejection fraction is estimated at 60-65%. No obvious regional wall motion abnormalities. No significant valvular dysfunction RVSP could not be estimated No pericardial effusion Previewed by: Dr Dheeraj Yen (Electronically Signed) Final Date: 14 March 2023 12:45
--- NOTE | 2023-03-14 12:59 | CT ---
EXAMINATION TYPE: CT chest angio for PE DATE OF EXAM: 03/14/2023 COMPARISON: 03/13/2023 HISTORY: 58-year-old male with shortness of breath, assess for PE. Elevated d-dimer. TECHNIQUE: Contiguous axial scanning of the chest performed with IV Contrast, patient injected with 8 0 mL of Isovue 370. Coronal/sagittal MIP reconstructions performed. CT DLP: 1157.8 mGycm Automated exposure control for dose reduction was used. FINDINGS: r are normal size without pericardial effusion. No flattening of the interventricular septum reflux o f contrast into the hepatic veins. 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 Scattered nonenlarged mediastinal and hilar lymph nodes are demonstrated. Hilar nodes measure up to 1 cm on the left. No thoracic lymphadenopathy by CT size criteria. Mild diffuse bronchial wall thickening. No consolidation or pleural effusion. There is suboptimal contrast bolus. Attenuation of the main pulmonary outflow track of only 150 Houns field units. Some of the segmental and more distal arterial branches are entirely nondiagnostic due t o the degree of enhancement no definite pulmonary embolus is seen. Visualized upper abdomen shows no gross abnormality. Bones: Mild anterior spondylosis lower thoracic spine. IMPRESSION: 1. SUBOPTIMAL CONTRAST BOLUS. MANY OF THE SEGMENTAL AND MORE DISTAL BRANCHES ARE NONDIAGNOSTIC DUE TO THE DEGREE OF ENHANCEMENT. NO DEFINITE PULMONARY EMBOLUS IS SEEN. 2. BRONCHIAL WALL THICKENING SUGGESTS BRONCHITIS OR CHRONIC ASTHMA.
[2023-03-14] MEDS ORDERED: prednisoLONE ACETATE 1% OPHTH DROPS 5 ML BTL BOTH EYES SCH (21:00)
[2023-03-14] MEDS ORDERED: clonazePAM 0.5 MG TAB PO SCH (21:00)
[2023-03-15] MEDS: LEVOTHYROXINE 50 MCG TAB PO SCH (06:21)
[2023-03-15 06:48] VITALS: RESP 18
[2023-03-15] MEDS: CHLORTHALIDONE 25 MG TAB PO SCH (09:52)
[2023-03-15 11:31] VITALS: BP 132/81; PULSE 76; TEMP 98.2
[2023-03-15] MEDS: atenoloL 50 MG TAB PO SCH (11:32)
--- NOTE | 2023-03-15 11:37 | CA ---
Stress Echo Report Dhaval Salmeron Age: 58 Gender: M : 1965 Exam Date: 03/15/2023 10:41 Exam Location: [facility] Ht (in): 76 Wt (lb): 340 Ordering Physician: Ting Orosco Referring Physician: [id number] Cespedes Animal Attendants And Trainers: Shobha Head [facility] Technologist Procedure CPT: Indication: CP ICD-9 Codes: Rhythm: Patient History: Cardiac Medications: SEE CHART Medications in past 24 hours: Contrast: Definity Stress Results Protocol: Mundo Total dose(mL): 8 Exercise Duration (min:sec): 6:[address] Depression (mm): Angina Score: Ellis Score: METS: 7.9 Resting HR: 101 Resting BP: 124 / 79 Peak HR: 153 Peak BP: 160 / 84 Max Predicted HR: 162 94 % Max Predicted HR Target HR: 138 Double Product: [id number] Stress Summary: No reported chest pain BP Response: Reason for Termination: MAX EXERTION/TARGET HR Cardiac Symptoms: DIFFICULTY IN BREATHING ECG Analysis Resting ECG: Normal sinus rhythm Stress ECG: No significant ST-T wave changes diagnostic for ischemia Arrhythmia: Occasional PVCs. No sustained arrhythmias Echo Analysis Resting Echo: Normal global LV size and systolic function. No obvious regional wall motion abnormality Peak Echo Analysis: Normal augmentation of systolic function of all myocardial segments. There is no stress-induced regional wall motion abnormality MEASUREMENTS (Male/Female) Normal Values CONCLUSIONS Overall normal treadmill echo stress test Poor exercise tolerance for patient's age only exercising for 6 minute 30 seconds, achieving 7.9 METS Nonischemic ECG and echo cardiographic response to exercise Normal hemodynamic response to exercise Dr Dheeraj Yen (Electronically Signed) Final Date: 15 March 2023 11:36
--- NOTE | 2023-03-15 12:48 | P.PN ---
Subjective Progress Note Date: 03/15/23 patient is a 58-year-old gentleman with past medical history significant for hypertension, hypothyroidism presents to ER because of chest pain. Patient stated that he has been having intermittent chest pain for the last 2 weeks. Chest pain is in the left side, feels like a burning sensation, intermittent lasting a few minutes to half an hour, radiates to the left shoulder. There is no aggravating factors associated with this chest pain, states chest pain is relieved if he is moving around. Denied any shortness of breath. Denies any sweating during these episodes. No complain of any palpitations. Patient denies any complain nausea, vomiting or abdominal pain. Because of the symptoms, patient came to the ER Initial lab work done in the ER showed WBC 10, hemoglobin 18.2, his platelet count 193, sodium 138, potassium 3.1, BUNs 17, creatinine 1.04, troponin 0.012 EKG done in the ER heart rate of 89, no ST segment elevation or T-wave inversion seen in any leads, no ST segment depression seen. Chest x-ray done in the ER showed no acute cardiopulmonary process Patient admitted to medicine service 03/15. Patient seen and examined. His chest CTA done because of elevated d- dimer was negative for PE. 2-D echo done showed LVEF of 65%, no regional wall motion abnormalities, no significant valvular dysfunction. Patient is very anxious. Currently undergoing stress test today REVIEW OF SYSTEMS: CONSTITUTIONAL: No fever, no malaise,. CARDIOVASCULAR: No chest pain, no palpitations, no syncope. PULMONARY: No shortness of breath, no cough, GASTROINTESTINAL: No diarrhea, no nausea, no vomiting, no abdominal pain. NEUROLOGICAL: No headaches, no weakness, PHYSICAL EXAMINATION: GENERAL: The patient is alert and oriented x3, not in any acute distress. Well developed, well nourished. HEENT: Pupils are round and equally reacting to light. EOMI. No scleral icterus. No conjunctival pallor. Normocephalic, atraumatic. No pharyngeal erythema. No thyromegaly. CARDIOVASCULAR: S1 and S2 present. No murmurs, rubs, or gallops. PULMONARY: Chest is clear to auscultation, no wheezing or crackles. ABDOMEN: Soft, nontender, nondistended, normoactive bowel sounds. No palpable organomegaly. MUSCULOSKELETAL: No joint swelling or deformity. EXTREMITIES: No cyanosis, clubbing, or pedal edema. NEUROLOGICAL: Gross neurological examination did not reveal any focal deficits. SKIN: No rashes. Assessment and plan Chest pain, rule out acute coronary syndrome Hypothyroidism Hypertension Diabetes mellitus type 2 Obstructive sleep apnea Low testosterone Glaucoma Polycythemia Monitor vital signs Monitor CBC Monitor CMP Continue telemetry monitoring In regards to hypothyroid continue Synthyroid follow-up of stress test results. Cardiology following Labs and medication were reviewed.. Continue same treatment. Continue with symptomatic treatment. Resume home medication. Monitor labs and vitals. DVT and GI prophylaxis. Further recommendations as per clinical course of the patient Dictation was produced using [employer] dictation software. please excuse any grammatical, word or spelling errors. Objective - Vital Signs Vital signs: Vital Signs Temp 98.3 F 03/14/23 04:32 Pulse 66 03/15/23 06:00 Resp 18 03/15/23 06:00 BP 112/71 03/15/23 06:00 Pulse Ox 95 03/15/23 06:00 FiO2 - Labs CBC & Chem 7: 03/13/23 19:31 03/13/23 19:31 Labs: Abnormal Lab Results - Last 24 Hours (Table) 03/14/23 Range/Units 11:19 D-Dimer 0.61 H (<0.60) mg/L FEU
--- NOTE | 2023-03-15 13:16 | P.DS ---
Providers Date of admission: 03/13/23 21:38 Expected date of discharge: 03/15/23 Attending physician: Pat Klein Consults: 03/13/23 21:23 Consult Physician Urgent Consulting Provider: [facility] Consult Reason/Comments: chest pain Do you want consulting provider notified?: Yes, Notify in am Primary care physician: [facility] Course: Discharge diagnoses; Chest pain, acute coronary syndrome ruled out Hypothyroidism Hypertension Diabetes mellitus type 2 Obstructive sleep apnea Low testosterone Glaucoma Polycythemia Hospital course; patient is a 58-year-old gentleman with past medical history significant for hypertension, hypothyroidism presents to ER because of chest pain. Patient stated that he has been having intermittent chest pain for the last 2 weeks. Chest pain is in the left side, feels like a burning sensation, intermittent lasting a few minutes to half an hour, radiates to the left shoulder. There is no aggravating factors associated with this chest pain, states chest pain is relieved if he is moving around. Denied any shortness of breath. Denies any sweating during these episodes. No complain of any palpitations. Patient denies any complain nausea, vomiting or abdominal pain. Because of the symptoms, patient came to the ER Initial lab work done in the ER showed WBC 10, hemoglobin 18.2, his platelet count 193, sodium 138, potassium 3.1, BUNs 17, creatinine 1.04, troponin 0.012 EKG done in the ER heart rate of 89, no ST segment elevation or T-wave inversion seen in any leads, no ST segment depression seen. Chest x-ray done in the ER showed no acute cardiopulmonary process Patient admitted to medicine service 03/15. Patient seen and examined. His chest CTA done because of elevated d- dimer was negative for PE. 2-D echo done showed LVEF of 65%, no regional wall motion abnormalities, no significant valvular dysfunction. Stress test was negative for ischemia, cardiology cleared the patient for discharge PHYSICAL EXAMINATION: GENERAL: The patient is alert and oriented x3, not in any acute distress. Well developed, well nourished. HEENT: Pupils are round and equally reacting to light. EOMI. No scleral icterus. No conjunctival pallor. Normocephalic, atraumatic. No pharyngeal erythema. No thyromegaly. CARDIOVASCULAR: S1 and S2 present. No murmurs, rubs, or gallops. PULMONARY: Chest is clear to auscultation, no wheezing or crackles. ABDOMEN: Soft, nontender, nondistended, normoactive bowel sounds. No palpable organomegaly. MUSCULOSKELETAL: No joint swelling or deformity. EXTREMITIES: No cyanosis, clubbing, or pedal edema. NEUROLOGICAL: Gross neurological examination did not reveal any focal deficits. SKIN: No rashes. Dictation was produced using [employer] dictation software. please excuse any grammatical, word or spelling errors. Patient Condition at Discharge: Fair Plan - Discharge Summary Discharge Rx Participant: No New Discharge Prescriptions: New Atorvastatin [Lipitor] 10 mg PO HS 30 Days #30 tab Continue Levothyroxine Sodium [Synthroid] 50 mcg PO DAILY Testosterone [Androgel 1.62% Gel Packet] 2 packet TOPICAL DAILY Ibuprofen [Motrin] 600 mg PO TID PRN PRN Reason: Pain Prednisolone Acetate/Pf [Prednisolone Acet 1% Eye Drop] 1 drop BOTH EYES HS Latanoprostene Bunod [Vyzulta] 1 drop BOTH EYES HS clonazePAM [KlonoPIN] 0.25 mg PO HS Atenolol/Chlorthalidone [Atenolol/Chlorthalidone 50-25] 1 tab PO DAILY Semaglutide [Ozempic] 1 mg SQ SA Discharge Medication List Atenolol/Chlorthalidone [Atenolol/Chlorthalidone 50-25] 1 tab PO DAILY 02/09/22 [History] Ibuprofen [Motrin] 600 mg PO TID PRN 02/09/22 [History] Levothyroxine Sodium [Synthroid] 50 mcg PO DAILY 02/09/22 [History] Testosterone [Androgel 1.62% Gel Packet] 2 packet TOPICAL DAILY 02/09/22 [History] clonazePAM [KlonoPIN] 0.25 mg PO HS 02/09/22 [History] Prednisolone Acetate/Pf [Prednisolone Acet 1% Eye Drop] 1 drop BOTH EYES HS 03/29/22 [History] Semaglutide [Ozempic] 1 mg SQ SA 03/13/23 [History] Latanoprostene Bunod [Vyzulta] 1 drop BOTH EYES HS 03/14/23 [History] Atorvastatin [Lipitor] 10 mg PO HS 30 Days #30 tab 03/15/23 [Rx] Follow up Appointment(s)/Referral(s): Dheeraj Yen MD [Medical Doctor] - 3 Weeks Adriana Qiu MD [Primary Care Provider] - 1-2 days Discharge Disposition: HOME SELF-CARE
--- NOTE | 2023-03-15 14:09 | P.PN ---
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 We have been asked to evaluate the patient for chest pain. He has a past medical history of glaucoma, diabetes, obstructive sleep apnea on CPAP, low testosterone on supplement. Patient states that he has had chest pain on and off for a couple weeks but yesterday he had all day. He also had some nausea but he thought this was related to Ozempic as he usually has this for the first couple days after the injection. He noticed a little bit of burning in the chest but denies history of GERD. Patient also went to the shoulder on the left. He denies any smoking history no marijuana use and no alcohol abuse. Patient is seen today in the emergency center waiting for bed on the observation unit. EKG sinus rhythm with no acute ST changes. Chest x-ray: No acute process. WBC 10, hemoglobin 18.2, platelet count 193. INR 1. Potassium 3.1 and was replaced in the emergency center. Otherwise electrolytes and renal function are normal. Blood sugar 150. Troponin negative 2. Liver function tests normal. Home cardiac medications: Atenolol/chlorthalidone 5025 one daily, Patient is on levothyroxine 50 g daily 03/15 Patient is seen today in follow up on the observation unit. Patient states he still has some episodes of left sided upper chest pain. He underwent a stress echo today which revealed overall normal treadmill echo stress test. Poor exercise tolerance for the patient's age and only exercising for 6 minutes 30 seconds achieving 7.9 metastases. Nonischemic EKG and echo cardiographic response to exercise. Normal hemodynamic response to exercise. Echocardiogram reveals EF60-65%, technically difficult study.blood pressure 132/81, heart rate 76, afebrile, pulse ox 97% on room air.. Physical examination: Gen: This is a 58-year-old male. His resting and in no acute distress VS: reviewed HEENT: Head is atraumatic, normocephalic. Pupils equal, round. Sclerae is anicteric. NECK: Supple. No JVD. LUNGS: Clear to auscultation. No wheezes or rhonchi. No intercostal retractions. HEART: Regular rate and rhythm. No murmur. ABDOMEN: Soft No tenderness. EXTREMITIES: No pedal edema. No calf tenderness. NEUROLOGICAL: Patient is awake, alert and oriented x3. Assessment: Chest pain, acute coronary syndrome ruled out Diabetes mellitus type 2 Obstructive sleep apnea Low testosterone Glaucoma Polycythemia most likely due to testosterone or obstructive sleep apnea the patient has been consistently using his CPAP. He will discuss this with Dr. Qiu on his next office visit. Plan: continue blood pressure medication initiate patient on atorvastatin 10 mg daily. patient is cleared for discharge from cardiology and a follow-up in the office with Dr. Yen in 3 weeks. Nurse practitioner note has been reviewed, I agree with documented findings and plan of care. Patient was seen and examined. Objective - Vital Signs Vital signs: Vital Signs Temp 98.2 F 03/15/23 07:00 Pulse 76 03/15/23 08:00 Resp 18 03/15/23 08:00 BP 132/81 03/15/23 07:00 Pulse Ox 97 03/15/23 07:00 FiO2 Intake & Output 03/14/23 03/15/23 03/15/23 18:59 06:59 18:59 Other: Voiding Method Toilet # Voids 1 - Labs CBC & Chem 7: 03/13/23 19:31 03/13/23 19:31
[2023-03-15] MEDS ORDERED: ATORVASTATIN 10 MG TAB PO SCH (21:00)
== END 2023-03-15 13:39 | disposition home or self-care (01) ==
LOC: EC 18:39 → 6NMEDSUR 21:38
PROVIDERS: ADMIT Hospitalist; ATTEND Hospitalist
DX: R07.89 Other chest pain (principal); I10 Essential (primary) hypertension; E11.9 Type 2 diabetes mellitus without complications; E03.9 Hypothyroidism, unspecified; G47.33 Obstructive sleep apnea (adult) (pediatric); D75.1 Secondary polycythemia; R79.89 Other specified abnormal findings of blood chemistry; E29.1 Testicular hypofunction; H40.9 Unspecified glaucoma; F41.9 Anxiety disorder, unspecified; M25.512 Pain in left shoulder; Z79.890 Hormone replacement therapy; Z79.85 Long-term (current) use of injectable non-insulin antidiabetic drugs; Z79.899 Other long term (current) drug therapy; Z88.0 Allergy status to penicillin; Z98.890 Other specified postprocedural states; Z83.3 Family history of diabetes mellitus; Z80.0 Family history of malignant neoplasm of digestive organs
CPT/HCPCS: 99285; 36415; 93005; 93306; 93351; 85379; 80053; 83735; 84484 ×2; 85025; 85610; 85730; 71046; 71275; G0378 ×3; Q9957 ×2; Q9967